=== PATIENT | female | born 1990 | race African-American/Black ===

== ENCOUNTER 2019-08-14 13:39 | Emergency (ER) | payer OTHER ==
[~2019-08-14] VITALS: Ht 165.1 cm; Wt 87.4 kg
[2019-08-14 14:48] LABS: BASO % 0.5 % (0.0-1.0); EOS # 0.2 10^3/uL (0.0-0.5); EOS % 2.8 % (0.0-3.0); HEMOGLOBIN 13.4 g/dl (12.0-15.5); LYMPH # 2.2 10^3/uL (1.5-5.0); LYMPH % 27.6 % (24.0-44.0); MEAN CORPUSCULAR HEMOGLOBIN 30.6 pg (27.0-33.0); MEAN CORPUSCULAR HGB CONC 32.7 g/dl (32.0-36.5); MEAN CORPUSCULAR VOLUME 93.6 fl (80.0-96.0); MONO # 0.7 10^3/uL (0.0-0.8); MONO % 8.1 % (0.0-5.0); NEUTROPHILS # 4.9 10^3/uL (1.5-8.5); NEUTROPHILS % 60.9 % (36.0-66.0); PLATELET COUNT, AUTOMATED 330 10^3/uL (150-450); RED BLOOD COUNT 4.38 10^6/uL (4.00-5.40)
[2019-08-14 15:04] LABS: ALBUMIN 3.4 GM/DL (3.2-5.2); ALT/SGPT 25 U/L (12-78); BILIRUBIN,DIRECT < 0.1 MG/DL (0.0-0.2); BILIRUBIN,TOTAL 0.2 MG/DL (0.2-1.0); BLOOD UREA NITROGEN 14 MG/DL (7-18); CALCIUM LEVEL 8.7 MG/DL (8.5-10.1); CARBON DIOXIDE LEVEL 28 MEQ/L (21-32); CHLORIDE LEVEL 108 MEQ/L (98-107); CREATININE FOR GFR 0.73 MG/DL (0.55-1.30); GLOMERULAR FILTRATION RATE > 60.0 (>60); GLUCOSE, FASTING 89 MG/DL (70-100); LIPASE 140 U/L (73-393); POTASSIUM SERUM 4.2 MEQ/L (3.5-5.1); SODIUM LEVEL 140 MEQ/L (136-145); TOTAL PROTEIN 7.3 GM/DL (6.4-8.2)
[2019-08-14] MEDS ORDERED: KETOROLAC 30 MG/ML VIAL (J1885) IV ONE (15:15)
[2019-08-14] MEDS ORDERED: ONDANSETRON 4MG/2ML VIAL (J2405) IV ONE (15:15)
[2019-08-14] MEDS ORDERED: NS 1,000 ML IV ONE (15:15)
--- NOTE | 2019-08-14 15:40 | REP ---
Clinical: Acute left flank pain. Technique: Axial noncontrast images from the lung bases to the pubic symphysis with coronal and sagittal re-formations. Comparison: None. Findings: Left ureteral stent extends from the left renal pelvis to the bladder with a 4 mm calculus adjacent to the stent in the mid ureter at the S1 level. Changes suggesting medullary sponge kidney noted bilaterally without hydronephrosis or perinephric stranding. Liver, spleen, pancreas, gallbladder, and bilateral adrenal glands are normal for noncontrast evaluation. The enteric system is without obstruction or acute inflammatory process. Evidence of prior appendectomy noted. Pelvis demonstrates normal bladder and age-appropriate uterus/adnexa. No ascites. No free air. No adenopathy. Abdominal aorta without aneurysm. Musculoskeletal structures are intact. Lung bases are clear. Impression: 1. 4 mm calculus in the mid/distal left ureter adjacent to the stent. No associated hydronephrosis or perinephric stranding. 2. Evidence consistent with medullary sponge kidney. Electronically Signed by Yeyo Powers MD 08/14/2019 03:31 P
[2019-08-14] MEDS ORDERED: KETO10TAB PO (16:52)
[2019-08-14] MEDS ORDERED: ONDA4TAB6 PO (16:55)
[2019-08-14 18:02] VITALS: BP 135/73
== END 2019-08-14 18:04 | disposition home or self-care (01) ==
LOC: M ED 13:39
DX: N20.1 Calculus of ureter (principal)
CPT/HCPCS: 74176; 80048; 80076; 81001; 83690; 84702; 85025; 87086; 96361; 96374; 96375; 99284; J1885; J2405